=== PATIENT | male | born 1940 | race Caucasian/White ===

== ENCOUNTER 2017-12-16 19:41 | Emergency (ER) | payer OTHER ==
--- NOTE | 2017-12-16 20:13 | PDOC ---
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 Patient reports he had a piece of tape stuck to his shoe and was trying to remove it with the other foot, when he suddenly lost balance and fell onto his right elbow. Patient denies any chest pain, dizziness, or palpitations prior to the fall. Patient denies any head trauma or loss of consciousness. Patient did notice a small laceration to his elbow prompting him to come to the ER. The patient denies chest pain, shortness of breath, headache and dizziness. Denies fever, chills, nausea, vomit, diarrhea and constipation. Denies dysuria, frequency, urgency and hematuria. Allergies: NKA Past surgical history: stent placed. Social history: No reported alcohol, drug or cigarette use. PCP: Dr. Schwartz <Juliane Laboy - Last Filed: 12/16/17 20:28> <Julio Murphy - Last Filed: 12/16/17 23:29> - General Chief Complaint: Injury Stated Complaint: RIGHT ELBOW SKIN TEAR Time Seen by Provider: 12/16/17 20:12 Past History <Juliane Laboy - Last Filed: 12/16/17 20:28> - Past Medical History Cardiac Disorders: Yes ([place]) HTN: Yes Hypercholesterolemia: Yes - Surgical History Cardiac Surgery: Yes (STENT) - Immunization History Immunization Up to Date: No - Suicide/Smoking/Psychosocial Hx Smoking Status: No Smoking History: Never smoked Have you smoked in the past 12 months: No Number of Cigarettes Smoked Daily: 0 Hx Alcohol Use: No Drug/Substance Use Hx: No Substance Use Type: None <Julio Murphy - Last Filed: 12/16/17 23:29> - Past Medical History Allergies/Adverse Reactions: Allergies Allergy/AdvReac Type Severity Reaction Status Date / Time No Known Allergies Allergy Verified 07/30/15 18:28 Home Medications: Ambulatory Orders Clopidogrel Bisulfate [Plavix] 75 mg PO DAILY #30 tablet 06/15/11 Metoprolol Succinate 50 mg PO DAILY 06/15/11 Ramipril 10 mg PO DAILY 06/15/11 Rosuvastatin Calcium [Crestor] 10 mg PO DAILY 06/15/11 Review of Systems - Review of Systems Comments:: 12/16/17 20:30 ROS: A complete review of 10 out of 10 review of systems is taken and is negative apart from what is previously mentioned below and in the HPI. <Juliane Laboy - Last Filed: 12/16/17 20:28> *Physical Exam - Vital Signs Last Vital Signs Temp Pulse Resp BP Pulse Ox 98.5 F 54 L 16 146/71 100 12/16/17 19:53 12/16/17 19:53 12/16/17 19:53 12/16/17 19:53 12/16/17 19:53 - Physical Exam Comments: 12/16/17 20:29 Vitals: Triage vital signs reviewed General Appearance: No acute distress, well nourished, well developed Cardiac: Regular rate and rhythm, no murmurs, no rubs, no gallops Lungs: Clear to auscultation bilateral, good air movement bilaterally Extremities: Full range of motion to all extremities, no cyanosis, clubbing, or edema Skin: Warm and dry, no rash, no petechiae (+) 4 cm skin tear to the right elbow , no need for lac repair. Neuro: AOX3; Cranial Nerves 2-12 grossly intact, Strength intact to all extremities, Sensation intact to all extremities. Psych: Normal mood, normal affect <Juliane Laboy - Last Filed: 12/16/17 20:28> Medical Decision Making - Medical Decision Making 12/16/17 20:48 Skin tear to left elbow. Thin skin no indication for laceration repair. Skin re -approximated. X-ray demonstrates no acute fracture dislocation. Patient with full range of motion no significant pain. Irrigated, bacitracin applied and covered with sterile dressing Findings, the need for follow-up and strict return instructions discussed with patient. <Julio Murphy - Last Filed: 12/16/17 23:29> *DC/Admit/Observation/Transfer - Attestations Scribe Attestion: 12/16/17 20:30 Documentation prepared by Juliane Laboy, acting as medical clerical assistant for Julio Murphy MD. <Juliane Laboy - Last Filed: 12/16/17 20:28> - Discharge Dispostion Decision to Admit order: No <Julio Murphy - Last Filed: 12/16/17 23:29> Diagnosis at time of Disposition: Skin tear, Visit for wound care - Discharge Dispostion Disposition: HOME Condition at time of disposition: Good - Referrals Referrals: Bret Schwartz [Primary Care Provider] - Jorge White MD [Staff Physician] - - Patient Instructions Printed Discharge Instructions: DI for Abrasion Additional Instructions: Apply bacitracin twice a day to affected area. Located the area twice a day return to ED immediately for any redness signs of infection bleeding pus streaking red lines difficulty moving the elbow for any concerns. If he develop any pain to the elbow please follow-up with Dr. White orthopedics next week. Return to ED for any concerns. - Post Discharge Activity
[2017-12-16 20:31] VITALS: BP 146/71; PULSE 54; TEMP 98.5; BMI 24.3
== END 2017-12-16 21:03 | disposition home or self-care (01) ==
LOC: FER 19:41
DX: S51.011A Laceration without foreign body of right elbow, initial encounter (principal); I10 Essential (primary) hypertension; I25.2 Old myocardial infarction; Z95.5 Presence of coronary angioplasty implant and graft; E78.00 Pure hypercholesterolemia, unspecified; W01.0XXA Fall on same level from slipping, tripping and stumbling without subsequent striking against object, initial encounter; Y93.89 Activity, other specified; Y92.9 Unspecified place or not applicable
CPT/HCPCS: 73070-TC-RT-FY; 99282-25

== ENCOUNTER 2018-11-13 09:32 | Emergency (ER) | payer OTHER ==
[2018-11-13 09:43] VITALS: TEMP 98.1; BMI 24.3
[2018-11-13 10:32] LABS: BASO % 0.3 % (0-2.0); EOS % 7.9 % (0-4.5); HEMATOCRIT 30.4 % (35.4-49); HEMOGLOBIN 10.3 GM/dl (11.7-16.9); LYMPH % 13.8 % (8-40); MCH 33.7 pg (25.7-33.7); MCHC 33.8 g/dl (32.0-35.9); MEAN CELL VOLUME 99.9 fl (80-96); MEAN PLT VOLUME 6.9 fl (7.5-11.1); MONO % 11.5 % (3.8-10.2); NEUT % 66.5 % (42.8-82.8); PLATELET COUNT 205 K/MM3 (134-434); RBC 3.04 M/mm3 (4.00-5.60); RDW 12.6 % (11.9-15.9); WHITE BLOOD COUNT 5.8 K/mm3 (4.0-10.8)
[2018-11-13 10:37] LABS: ALBUMIN 3.5 g/dl (3.4-5.0); BILIRUBIN,TOTAL 0.7 mg/dl (0.2-1); CALCIUM 8.3 mg/dl (8.5-10); CREATININE 0.9 mg/dl (0.55-1.3); POTASSIUM 3.8 mmol/L (3.5-5.1); TOT PROT 6.3 g/dl (6.4-8.2)
[2018-11-13] MEDS ORDERED: SODIUM CHLORIDE 500 ML IV STA (10:45)
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
[2018-11-13 12:38] VITALS: BP 132/85; PULSE 51
--- NOTE | 2018-11-14 10:14 | EKG ---
Test Reason : Blood Pressure : / mmHG Vent. Rate : 046 BPM Atrial Rate : 046 BPM P-R Int : 234 ms QRS Dur : 100 ms QT Int : 484 ms P-R-T Axes : 090 072 079 degrees QTc Int : 423 ms SINUS BRADYCARDIA WITH 1ST DEGREE A-V BLOCK WITH PREMATURE SUPRAVENTRICULAR COMPLEXES OTHERWISE NORMAL ECG NO PREVIOUS ECGS AVAILABLE Confirmed by Jimbo Ceballos MD ([id number]) on 11/14/2018 10:13:36 AM Referred By: JULIUS MANZANARES Confirmed By:Jimbo Ceballos MD
== END 2018-11-13 12:30 | disposition home or self-care (01) ==
LOC: FER 09:32 → SUPCPDRO 09:32 → FER 12:30
PROC: 3E0337Z Introduction of Electrolytic and Water Balance Substance into Peripheral Vein, Percutaneous Approach (ICD-10-PCS; principal; 2018-11-13)
DX: R41.82 Altered mental status, unspecified (principal); Z87.891 Personal history of nicotine dependence; Z95.5 Presence of coronary angioplasty implant and graft; I10 Essential (primary) hypertension; I25.2 Old myocardial infarction; E78.00 Pure hypercholesterolemia, unspecified; Z86.73 Personal history of transient ischemic attack (TIA), and cerebral infarction without residual deficits
CPT/HCPCS: 36415; 70450-TC; 71046-TC-FY; 80053; 81003; 82962; 84484; 85025; 93005; 96360; 99285-25

== ENCOUNTER 2019-08-25 01:19 | Emergency (ER) | payer OTHER ==
[2019-08-25 01:31] VITALS: BP 122/55; PULSE 62; TEMP 98.4; BMI 24.3
--- NOTE | 2019-08-25 01:42 | PDOC ---
History of Present Illness - General Chief Complaint: Altered Mental Status Stated Complaint: ALTERED MENTAL STATUS Time Seen by Provider: 08/25/19 01:34 History Source: Patient Exam Limitations: No Limitations - History of Present Illness Initial Comments: 08/25/19 01:39 This is an 79-year-old male who comes in for evaluation. Patient was brought in by his for evaluation. As per patient he has no complaints. As per patient was confused prior to coming in and now he is back to his baseline. Patient denies any headache, neck pain, nausea vomiting or diarrhea. 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 Patient does have a Nuno catheter. Allergies: as per nursing notes Past Medical History: none Social history: Lives with family. No smoking. No alcohol. No illicit drugs. Surgical history: None General: No fevers or chills, no weakness, no weight loss HEENT: No change in vision. No sore throat,. No ear pain CardioVascular: no chest discomfort. No shortness of breath Respiratory:No cough, or wheezing. Gastrointestinal: no nausea, vomiting, diarrhea or constipation, No rectal bleeding Genitourinary: No dysuria, hematuria, or frequency Musculoskeletal: No joint or muscle pain or swelling Neurologic: No headache, vertigo, dizziness or loss of consciousness Psychiatric: nor depression Skin: No rashes or easy bruising Endocrine: no increased thirst or abnormal weight change Allergic: no skin or latex allergy All other systems reviewed and normal Exam: General: Well-nourished well-developed individual, no acute distress HEENT: Throat: Normal, tonsils normal, no erythema or exudate Neck: Supple, no meningeal signs, no lymphadenopathy Eyes::Pupils equal reactive and round, extraocular motion intact Chest: Nontender to palpation Cardiac: S1-S2 normal, regular rate and rhythm, no murmurs rubs or gallops Respiratory: Lungs clear to auscultation bilateral Abdomen: Soft, nondistended, normal bowel sounds, there is no tenderness on palpation diffusely Extremities: Warm, dry, no cyanosis, clubbing, or edema Skin: No rashes Neuro: Alert and oriented x3, CN II - XII intact, nonfocal exam with normal strength, normal sensation, normal reflexes, normal gait, Psych: Normal mood and affect Past History - Medical History Allergies/Adverse Reactions: Allergies Allergy/AdvReac Type Severity Reaction Status Date / Time No Known Allergies Allergy Verified 11/13/18 09:37 Home Medications: Ambulatory Orders Clopidogrel Bisulfate [Plavix -] 75 mg PO DAILY #30 tablet 06/15/11 Ramipril 10 mg PO DAILY 06/15/11 Rosuvastatin Calcium [Crestor] 10 mg PO DAILY 06/15/11 Carvedilol [Coreg -] 12.5 mg PO BID 11/13/18 Eplerenone 50 mg PO DAILY 05/03/19 Sulfamethoxazole/Trimethoprim [Bactrim Ds -] 1 tab PO BID 08/25/19 Cardiac Disorders: Yes ([place]) COPD: No Disorders: Yes (BLADDER TUMOR) HTN: Yes Hypercholesterolemia: Yes - Surgical History Cardiac Surgery: Yes (STENT) - Immunization History TDAP Vaccination: Yes (07/30/2015) Immunization Up to Date: No - Psycho-Social/Smoking History Smoking Status: No Smoking History: Unknown if ever smoked Have you smoked in the past 12 months: No Number of Cigarettes Smoked Daily: 0 Information on smoking cessation initiated: No *Physical Exam - Vital Signs Last Vital Signs Temp Pulse Resp BP Pulse Ox 98.4 F 62 16 122/55 L 100 08/25/19 01:26 08/25/19 01:26 08/25/19 01:26 08/25/19 01:26 08/25/19 01:26 ED Treatment Course - LABORATORY CBC & Chemistry Diagram: 08/25/19 01:40 08/25/19 01:40 Discharge - Discharge Information Problems reviewed: Yes Clinical Impression/Diagnosis: Episodic confusion Condition: Stable Disposition: HOME - Admission No - Follow up/Referral Referrals: ON STAFF,NOT [Primary Care Provider] - - Patient Discharge Instructions Additional Instructions: It is very important that you call your doctor and follow-up with your doctor on Tuesday. Return to the ER for any fevers, nausea vomiting diarrhea or any concerns Return to the emergency department immediately with ANY new, persistent or worsening symptoms. Continue any medications as previously prescribed by your physician. You should follow up with your primary doctor as soon as possible regarding today's emergency department visit. . Please make sure your doctor reviews the results of your emergency evaluation. Thank you for coming to the Emergency Department today for your care. It was a pleasure to see you today. Please note that your evaluation is INCOMPLETE until you follow-up with your doctor. - Post Discharge Activity
[2019-08-25 02:38] LABS: BASO % 0.2 % (0-2.0); EOS % 0.9 % (0-4.5); HEMATOCRIT 29.7 % (35.4-49); HEMOGLOBIN 10.1 GM/dL (11.7-16.9); LYMPH % 10.2 % (8-40); MCH 33.4 pg (25.7-33.7); MCHC 34.1 g/dl (32.0-35.9); MEAN CELL VOLUME 97.8 fl (80-96); MEAN PLT VOLUME 7.3 fl (7.5-11.1); MONO % 10.6 % (3.8-10.2); NEUT % 78.1 % (42.8-82.8); PLATELET COUNT 196 K/MM3 (134-434); RBC 3.04 M/mm3 (4.00-5.60); RDW 13.2 % (11.9-15.9); WHITE BLOOD COUNT 11.8 K/mm3 (4.0-10.0)
[2019-08-25 02:52] LABS: EPI CELLS 3 /uL (0-25.1); HYALINE CASTS 11 /uL (0-3.1); PH,URINE 5.5 (5.0-8.0); URINE APPEARANCE TURBID; URINE BACTERIA 3 /uL (0-1359); URINE BILIRUBIN 1+ (NEGATIVE); URINE COLOR ORANGE; URINE GLUCOSE (UA) NEGATIVE (NEGATIVE); URINE KETONE NEGATIVE (NEGATIVE); URINE LEUK ESTERASE 2+ (NEGATIVE); URINE NITRITE NEGATIVE (NEGATIVE); URINE PROTEIN 3+ (NEGATIVE); URINE RBC 8884 /uL (0-23.9); URINE WBC 890 /uL (0-25.8)
[2019-08-25 03:09] LABS: ALBUMIN 3.1 g/dl (3.4-5.0); BILIRUBIN,TOTAL 0.5 mg/dL (0.2-1); BLOOD UREA NITROGEN 12.7 mg/dL (7-18); CALCIUM 8.1 mg/dL (8.5-10.1); CREATININE 1.2 mg/dL (0.55-1.3)
== END 2019-08-25 03:23 | disposition home or self-care (01) ==
LOC: FER 01:19
DX: R41.0 Disorientation, unspecified (principal)
CPT/HCPCS: 36415; 80053; 81003; 85025; 87086; 99283-25

== ENCOUNTER 2023-09-16 11:34 | Inpatient (IN) | payer OTHER ==
[2023-09-16] MEDS: SODIUM CHLORIDE 1,000 ML IV SCH (12:00)
[2023-09-16 12:29] LABS: INR 1.71 (0.83-1.09); PROTHROMBIN TIME (PATIENT) 19.2 SEC (9.7-13.0)
[2023-09-16 12:32] LABS: ACTIVATED PTT 45.1 SECONDS (25.2-36.5)
[2023-09-16 12:40] LABS: ALBUMIN 3.8 g/dl (3.4-5.0); BILIRUBIN,TOTAL 1.7 mg/dl (0.2-1); CALCIUM 8.7 mg/dl (8.5-10.1); CREATININE 1.5 mg/dl (0.6-1.3); POTASSIUM 3.6 mmol/L (3.5-5.1); TOT PROT 6.5 g/dl (6.4-8.2)
[2023-09-16] MEDS: SODIUM CHLORIDE 500 ML IV STA (13:15)
[2023-09-16 13:32] LABS: BASO % 0.2 % (0-2.0); EOS % 0.1 % (0-4.5); HEMATOCRIT 28.6 % (35.4-49); HEMOGLOBIN 9.5 GM/dL (11.7-16.9); LYMPH % 9.5 % (8-40); MCH 33.2 pg (25.7-33.7); MCHC 33.4 g/dl (32.0-35.9); MEAN CELL VOLUME 99.3 fl (80-96); MEAN PLT VOLUME 7.2 fl (7.5-11.1); MONO % 7.2 % (3.8-10.2); PLATELET COUNT 155 10^3/uL (134-434); RBC 2.88 M/mm3 (4.00-5.60); RDW 13.7 % (11.9-15.9); WHITE BLOOD COUNT 11.6 K/mm3 (4.0-10.0)
[2023-09-16 13:47] LABS: EPITHELIAL CELLS 0-5 /hpf
[2023-09-16] MEDS ORDERED: cefTRIAXone SODIUM 1 GM VIAL ONE (14:02)
[2023-09-16] MEDS: CEFTRIAXONE 1 GM in DEXTROSE 5%-WATER - 100 ML IVPB ONE (14:10)
[2023-09-16 18:46] VITALS: BMI 22.4
[2023-09-17 08:51] LABS: ALBUMIN 3.2 g/dl (3.4-5.0); BILIRUBIN,TOTAL 0.9 mg/dl (0.2-1); CALCIUM 8.5 mg/dl (8.5-10.1); CREATININE 1.3 mg/dl (0.6-1.3); MAGNESIUM 1.8 mg/dL (1.8-2.4); PHOSPHOROUS 3.1 (2.5-4.9); TOT PROT 5.7 g/dl (6.4-8.2)
[2023-09-17] MEDS ORDERED: APIXABAN 5 MG TABLET PO SCH (10:00)
[2023-09-17] MEDS: metoPROLOL SUCCINATE 25 MG TAB.SR.24H (FP) PO SCH (10:13)
[2023-09-17] MEDS: CEFTRIAXONE 1 GM in DEXTROSE 5%-WATER - 50 ML IVPB SCH (10:13)
[2023-09-17] MEDS: APIXABAN 2.5 MG TABLET PO SCH (10:13)
[2023-09-17 11:00] LABS: BASO % 0.1 % (0-2.0); EOS % 2.3 % (0-4.5); HEMATOCRIT 26.2 % (35.4-49); HEMOGLOBIN 8.8 GM/dL (11.7-16.9); LYMPH % 13.6 % (8-40); MCHC 33.6 g/dl (32.0-35.9); MEAN CELL VOLUME 98.1 fl (80-96); MEAN PLT VOLUME 7.5 fl (7.5-11.1); MONO % 8.7 % (3.8-10.2); NEUT % 75.3 % (42.8-82.8); PLATELET COUNT 135 10^3/uL (134-434); RBC 2.67 M/mm3 (4.00-5.60); RDW 13.9 % (11.9-15.9); WHITE BLOOD COUNT 7.9 K/mm3 (4.0-10.0)
[2023-09-17] MEDS: ACETAMINOPHEN 325 MG TABLET (FP) PO PRN (21:23)
[2023-09-18 08:37] LABS: HEMATOCRIT 28.1 % (35.4-49); HEMOGLOBIN 9.2 G/dL (11.7-16.9); MCH 33.3 pg (25.7-33.7); MCHC 32.6 g/dl (32.0-35.9); MEAN CELL VOLUME 102.2 fl (80-96); PLATELET COUNT 138.6 10^3/uL (134-434); RBC 2.75 10^6/uL (4.00-5.60); RDW 14.3 % (11.9-15.9)
[2023-09-18 09:24] LABS: ALBUMIN 3.3 g/dl (3.4-5.0); CALCIUM 8.4 mg/dl (8.5-10.1); CREATININE 1.2 mg/dl (0.6-1.3); POTASSIUM 4.4 mmol/L (3.5-5.1); TOT PROT 5.8 g/dl (6.4-8.2)
[2023-09-18 10:08] LABS: BILIRUBIN,TOTAL 0.5 mg/dl (0.2-1)
[2023-09-18 10:17] LABS: PLATELET ESTIMATE ADEQUATE
[2023-09-18] MEDS: RAMIPRIL 5 MG CAPSULE PO SCH (13:13)
[2023-09-19 08:55] LABS: ALBUMIN 3.2 g/dl (3.4-5.0); BILIRUBIN,TOTAL 0.7 mg/dl (0.2-1); CALCIUM 8.2 mg/dl (8.5-10.1); CREATININE 1.1 mg/dl (0.6-1.3); POTASSIUM 3.8 mmol/L (3.5-5.1); TOT PROT 5.5 g/dl (6.4-8.2)
[2023-09-19 09:45] VITALS: BP 143/92; PULSE 85; RESP 18; TEMP 98.2
[2023-09-19 10:15] LABS: BASO % 0.3 % (0-2.0); HEMATOCRIT 26.3 % (35.4-49); LYMPH % 18.6 % (8-40); MCH 33.9 pg (25.7-33.7); MCHC 34.3 g/dl (32.0-35.9); MEAN CELL VOLUME 98.9 fl (80-96); MEAN PLT VOLUME 7.4 fl (7.5-11.1); MONO % 11.6 % (3.8-10.2); NEUT % 63.5 % (42.8-82.8); PLATELET COUNT 155 10^3/uL (134-434); RBC 2.66 M/mm3 (4.00-5.60); RDW 13.6 % (11.9-15.9); WHITE BLOOD COUNT 5.3 K/mm3 (4.0-10.0)
== END 2023-09-19 14:24 | disposition home or self-care (01) | DRG 689 ==
LOC: FER 11:34 → SUPCPDRO 11:34 → FM/S 15:20
DX: N39.0 Urinary tract infection, site not specified (principal); G93.41 Metabolic encephalopathy; N17.9 Acute kidney failure, unspecified; R47.01 Aphasia; R47.1 Dysarthria and anarthria; N31.9 Neuromuscular dysfunction of bladder, unspecified; I25.2 Old myocardial infarction; I48.91 Unspecified atrial fibrillation; D64.9 Anemia, unspecified; I12.9 Hypertensive chronic kidney disease with stage 1 through stage 4 chronic kidney disease, or unspecified chronic kidney disease; N18.9 Chronic kidney disease, unspecified; R33.8 Other retention of urine
CPT/HCPCS: 0241U-QW; 36415; 70450-TC; 71045-TC-FY; 80053; 81003; 81015; 82962; 83036; 83735; 84100; 84443; 84484; 85025; 85027; 85610; 85730; 86850; 86900; 86901; 87086; 87186; 93005; 97116-GP; 97162-GP; 99285-25

== ENCOUNTER 2023-11-20 22:09 | Inpatient (IN) | payer OTHER ==
[2023-11-21] MEDS: SODIUM CHLORIDE 1,000 ML IV SCH
[2023-11-21 00:07] LABS: BASO % 0.1 % (0-2.0); EOS % 3.8 % (0-4.5); HEMATOCRIT 25.2 % (35.4-49); HEMOGLOBIN 8.6 GM/dL (11.7-16.9); LYMPH % 17.1 % (8-40); MCH 32.2 pg (25.7-33.7); MEAN CELL VOLUME 94.8 fl (80-96); MONO % 10.2 % (3.8-10.2); NEUT % 68.8 % (42.8-82.8); PLATELET COUNT 188 10^3/uL (134-434); RBC 2.66 M/mm3 (4.00-5.60); RDW 13.8 % (11.9-15.9); WHITE BLOOD COUNT 5.5 K/mm3 (4.0-10.0)
[2023-11-21 00:19] LABS: POTASSIUM 4.3 mmol/L (3.5-5.1)
[2023-11-21 00:21] LABS: ALBUMIN 3.2 g/dl (3.4-5.0); CALCIUM 8.6 mg/dL (8.5-10.1)
[2023-11-21 00:22] LABS: BLOOD UREA NITROGEN 12.3 mg/dL (7-18)
[2023-11-21 00:26] LABS: TOT PROT 6.2 g/dl (6.4-8.2)
[2023-11-21 00:27] LABS: BILIRUBIN,TOTAL 0.6 mg/dL (0.2-1)
[2023-11-21 00:28] LABS: INR 1.54 (0.83-1.09); PROTHROMBIN TIME (PATIENT) 17.5 SEC (9.7-13.0)
[2023-11-21 00:30] LABS: ACTIVATED PTT 43.5 SECONDS (25.2-36.5)
[2023-11-21] MEDS: ACETAMINOPHEN 1000 MG/100 ML BAG IVPB ONE (01:39)
[2023-11-21 02:12] LABS: URINE APPEARANCE CLEAR; URINE BILIRUBIN NEGATIVE (NEGATIVE); URINE COLOR YELLOW; URINE GLUCOSE (UA) NEGATIVE (NEGATIVE); URINE KETONE NEGATIVE (NEGATIVE); URINE LEUK ESTERASE NEGATIVE (NEGATIVE); URINE NITRITE NEGATIVE (NEGATIVE); URINE PROTEIN NEGATIVE (NEGATIVE)
[2023-11-21 09:57] LABS: HEMATOCRIT 29.8 % (35.4-49); HEMOGLOBIN 10.2 GM/dL (11.7-16.9); MCH 32.8 pg (25.7-33.7); MCHC 34.3 g/dl (32.0-35.9); MEAN CELL VOLUME 95.6 fl (80-96); MEAN PLT VOLUME 7.2 fl (7.5-11.1); PLATELET COUNT 208 10^3/uL (134-434); RBC 3.12 M/mm3 (4.00-5.60); RDW 13.8 % (11.9-15.9); WHITE BLOOD COUNT 8.2 K/mm3 (4.0-10.0)
[2023-11-21] MEDS: metoPROLOL SUCCINATE 25 MG TAB.SR.24H (FP) PO SCH (10:16)
[2023-11-21] MEDS: APIXABAN 5 MG TABLET PO SCH (10:16)
[2023-11-21 10:19] LABS: POTASSIUM 4.1 mmol/L (3.5-5.1)
[2023-11-21 10:22] LABS: ALBUMIN 3.2 g/dl (3.4-5.0); CALCIUM 8.6 mg/dL (8.5-10.1)
[2023-11-21 10:23] LABS: BLOOD UREA NITROGEN 11.2 mg/dL (7-18); MAGNESIUM 1.8 mg/dL (1.8-2.4)
[2023-11-21 10:26] LABS: PHOSPHOROUS 3.7 mg/dL (2.5-4.9)
[2023-11-21 10:27] LABS: BILIRUBIN,TOTAL 1.1 mg/dL (0.2-1); TOT PROT 6.4 g/dl (6.4-8.2)
[2023-11-21] MEDS ORDERED: ACETAMINOPHEN 325 MG TABLET (FP) PO PRN (12:41)
[2023-11-21 16:03] LABS: POTASSIUM 3.9 mmol/L (3.5-5.1)
[2023-11-21 16:05] LABS: BLOOD UREA NITROGEN 11.3 mg/dL (7-18); CALCIUM 8.3 mg/dL (8.5-10.1)
[2023-11-21] MEDS: ROSUVASTATIN CA 10 MG TABLET PO SCH (22:10)
[2023-11-21] MEDS: SODIUM CHLORIDE 1 GM TABLET PO SCH (22:10)
[2023-11-22 09:13] LABS: BASO % 0.3 % (0-2.0); EOS % 2.7 % (0-4.5); HEMATOCRIT 27.6 % (35.4-49); HEMOGLOBIN 9.2 GM/dL (11.7-16.9); MCH 32.5 pg (25.7-33.7); MCHC 33.4 g/dl (32.0-35.9); MEAN CELL VOLUME 97.2 fl (80-96); MEAN PLT VOLUME 6.9 fl (7.5-11.1); MONO % 10.6 % (3.8-10.2); NEUT % 67.4 % (42.8-82.8); PLATELET COUNT 165 10^3/uL (134-434); RBC 2.84 M/mm3 (4.00-5.60); RDW 13.5 % (11.9-15.9); WHITE BLOOD COUNT 4.8 K/mm3 (4.0-10.0)
[2023-11-22 09:33] LABS: POTASSIUM 4.1 mmol/L (3.5-5.1)
[2023-11-22 09:37] LABS: CALCIUM 8.7 mg/dL (8.5-10.1)
[2023-11-22 09:38] LABS: BLOOD UREA NITROGEN 11.5 mg/dL (7-18)
[2023-11-22 09:41] LABS: CREATININE 0.9 mg/dL (0.55-1.3)
[2023-11-22] MEDS: ASPIRIN 81 MG CHEWABLE TABLETS PO SCH (09:43)
[2023-11-22 15:28] VITALS: BMI 21.8
[2023-11-22 22:20] VITALS: RESP 18
[2023-11-22] MEDS: MELATONIN 5 MG TABLETS PO ONE (23:38)
[2023-11-23] MEDS: LORazepam 2 MG/ML SDV VIAL IVPUSH ONE (03:21)
[2023-11-23] MEDS ORDERED: oxyCODONE HCL 5 MG TABLET PO ONE (12:15)
[2023-11-23] MEDS ORDERED: hydrALAZINE HCL 25 MG TABLET (FP) PO ONE (12:15)
[2023-11-23 14:21] VITALS: BP 134/60; PULSE 55; TEMP 98.4
== END 2023-11-23 15:05 | DRG 69 ==
LOC: JER 22:09 → JERBED 11-21 02:20 → OBSVTOIN 11-21 02:20 → J8W 11-21 04:26
PROVIDERS: ADMIT Internal Medicine; ATTEND Nurse Practitioner Family
DX: G45.9 Transient cerebral ischemic attack, unspecified (principal); E87.1 Hypo-osmolality and hyponatremia; E78.5 Hyperlipidemia, unspecified; N31.9 Neuromuscular dysfunction of bladder, unspecified; I25.2 Old myocardial infarction; I48.91 Unspecified atrial fibrillation; I12.9 Hypertensive chronic kidney disease with stage 1 through stage 4 chronic kidney disease, or unspecified chronic kidney disease; N18.9 Chronic kidney disease, unspecified
CPT/HCPCS: 0241U-QW; 36415; 70450-TC; 70496-TC; 70498-TC; 71250-TC; 80048; 80053; 80061; 81003; 82550; 83036; 83735; 84100; 84484; 85025; 85027; 85610; 85730; 86850; 86900; 86901; 87086; 93005; 93010; 97116-GP; 97161-GP; 99285-25; Q9967

== ENCOUNTER 2024-01-18 17:34 | Emergency (ER) | payer OTHER ==
[2024-01-18 18:06] VITALS: BP 156/67; PULSE 67; RESP 20; TEMP 97.3
[2024-01-18] MEDS ORDERED: DIPHTH,PERTUSS(ACELL),TET 0.5 ML DISP.SYRIN IM ONE (19:05)
[2024-01-18] MEDS: DIPHTH,PERTUSS(ACELL),TET 0.5 ML DISP.SYRIN IM ONE (19:06)
== END 2024-01-18 20:47 | disposition home or self-care (01) ==
LOC: FER 17:34
PROC: 0HQFXZZ Repair Right Hand Skin, External Approach (ICD-10-PCS; principal; 2024-01-18)
PROC: 3E0234Z Introduction of Serum, Toxoid and Vaccine into Muscle, Percutaneous Approach (ICD-10-PCS; 2024-01-18)
DX: S61.411A Laceration without foreign body of right hand, initial encounter (principal); S08.0XXA Avulsion of scalp, initial encounter; W10.8XXA Fall (on) (from) other stairs and steps, initial encounter; Y93.01 Activity, walking, marching and hiking; Z23 Encounter for immunization
CPT/HCPCS: 12001-25; 70450-TC; 72125-TC; 90471; 90715; 99284-25